=== PATIENT | female | born 2000 | race Caucasian/White ===

== ENCOUNTER → 2019-06-08 | Outpatient (CLI) | payer SELFPAY | END | disposition home or self-care (01) | LOC: LAB 11:58 | PROVIDERS: ATTEND Nurse Practitioner Family | DX: Z20.9 Contact with and (suspected) exposure to unspecified communicable disease (principal) | CPT/HCPCS: 36415; 86706; 86735; 86762; 86765; 86787 ==

== ENCOUNTER 2021-04-26 22:27 | Emergency (ER) | payer OTHER ==
[~2021-04-26] VITALS: Ht 157.5 cm; Wt 59.0 kg
[2021-04-27] VITALS: BP 132/83
[2021-04-27 00:02] LABS: Hepatitis B Surface Antibody Positive (Negative)
== END 2021-04-27 02:26 | disposition home or self-care (01) ==
LOC: ER 22:29
DX: S61.431A Puncture wound without foreign body of right hand, initial encounter (principal); W46.1XXA Contact with contaminated hypodermic needle, initial encounter; Y93.89 Activity, other specified; Y92.89 Other specified places as the place of occurrence of the external cause; Y99.8 Other external cause status
CPT/HCPCS: 36415; 86703; 86706; 86803; 87340